=== PATIENT | male | born 1950 | race Caucasian/White ===

== ENCOUNTER 2024-12-24 00:13 | Emergency (ER) | payer MEDICARE, BC, OTHER, SELFPAY ==
--- OUTSIDE RECORDS SUMMARY | 2024-12-24 00:16 | XMS_ITS | Clinical Summary ---
Author Organization [facility] Address [address] [place] [address] Care Team Providers Care Furniture Shampooer Name Role Phone Elsewhere, Pcp Primary Care Provider Unavailabl e Source Comments Patient records contain information from all sites at [facility]. For routine questions regarding patient records, call [phone] during business hours, M-F 8:00 AM - 5:00 PM Central Time. Record requests for emergency care only can be directed to [phone] at any time.[facility] Allergies Active Allergy Reactions Criticality Noted Date Comments Carbidopa-Levodopa Other (see comments) 008 Lisinopril Other (see comments) 08/06/2012 Medications losartan (COZAAR) 100 mg tablet Take 100 mg by mouth daily. 6 Active pantoprazole (PROTONIX) 20 mg EC tablet Take 1 tablet by mouth daily. 6 Active tamsulosin (for_FLOMAX) 0.4 mg 24 hr capsule Take 1 capsule by mouth daily. 6 Active traZODone (for_DESYREL) 50 mg tablet Take 1 tablet by mouth at bedtime. 7 Active venlafaxine XR (EFFEXOR-XR) 75 mg 24 hr capsule Take 75 mg by mouth daily. 6 Active acetaminophen (TYLENOL) 500 mg capsule Take by mouth every 6 (six) hours as needed. Active ferrous gluconate 324 mg (37.5 mg iron) tablet Take 37.5 mg of iron by mouth daily. Patient takes 1 tablet daily. Active aspirin [address] tablet Take 81 mg by mouth daily. Active hydroCHLOROthia zide (HYDRODIURIL) 25 mg tablet Take 12.5 mg by mouth daily. Active diclofenac sodium (VOLTAREN) 1 % gel Apply 4 g topically 4 (four) times a day as needed (joint pain). Active cholecalciferol (Vitamin D3) 2,000 Unit tablet Take 1 tablet by mouth daily. 6 Active zolpidem (AMBIEN) 10 mg tablet 5 mg as needed. 9 Active ascorbic acid, vitamin C, (ascorbic acid with carla hips) 500 mg tablet Take 500 mg by mouth daily. Active multivitamin (multivitamin) tablet Take 1 tablet by mouth daily. Active meloxicam (MOBIC) 15 mg tablet Take 15 mg by mouth daily. Active simethicone (MYLICON) 80 mg chewable tablet CHEW ONE TABLET BY MOUTH EVERY DAY NEEDED FOR GAS PAIN 1 Active sennosides (SENOKOT) 8.6 mg tablet TAKE TWO TABLETS BY MOUTH THREE TIMES A DAY NEEDED FOR CONSTIPATION STOP IF DIARRHEA OCCURS FOR CONSTIPATION 1 Active pregabalin (LYRICA) 100 mg capsule 100 mg 2 (two) times a day. 1 Active Lactobacillus acidophilus 0.5 mg (100 million cell) tablet TAKE 1 TABLET BY MOUTH EVERY DAY FOR GUT HEALTH 1 Active lidocaine (LIDODERM) 5 % Place 1 patch on the skin daily. Remove & discard patch within 12 hours or as directed by MD. 12 patch 1 Active cyclobenzaprine (FLEXERIL) 10 mg tablet Take 10 mg by mouth. 1 Active folic acid 800 mcg tablet Take 1 tablet by mouth daily. Active omega 4-veb-shb-fish oil 1,000 mg (120 mg-180 mg) capsule Take 1,000 mg by mouth daily. 1 Active metFORMIN XR (GLUCOPHAGE-XR) 500 mg 24 hr tablet Take 2 tablets by mouth 2 (two) times a day with meals. 6 Active DULoxetine (CYMBALTA) [address] capsule Take 20 mg by mouth daily. 4 Active mineral oil/petrolatum, white (WHITE PETROLATUM-MINE RAL OIL OPHT) Administer into affected eye(s). 4 Active naproxen (NAPROSYN) 375 mg tablet Take 1 tablet by mouth 2 (two) times a day as needed. 4 Active polyvinyl alcohol-povidon e, PF, (REFRESH CLASSIC) 1.4-0.6 % ophthalmic solution Administer into affected eye(s). As needed. 4 Active empagliflozin (JARDIANCE) 25 mg tablet Take 12.5 mg by mouth. 3 Active amLODIPine (NORVASC) 5 mg tablet Take 1 tablet by mouth daily. 3 Active atorvastatin (LIPITOR) 80 mg tablet Take 1 tablet (80 mg total) by mouth at bedtime. 90 tablet 3 4 Active Active Problems Problem Noted Date Diagnosed Date Spasm Muscle 09/03/2020 Pain Flank 09/03/2020 Vomiting 08/31/2020 Abdominal Pain 08/31/2020 Atherosclerotic Heart Diseas e Of [place] Coronary Artery Without Angina Pectoris 07/06/2020 Hypertension Essential Primary 07/06/2020 Hyperlipidemia 07/06/2020 Peripheral Arterial Disease 07/06/2020 Diabetes Mellitus Type 2 Without Complication Obstructive Sleep Apnea Adult 07/06/2020 Immunizations Immunization Administration Dates Next Due HZV (ZOSTAVAX) 05/12/2016 HepB Adult 02/09/2006,10/06/2005,09/08/2005 Influenza TIV (IM) 06/08/2011,05/24/2006 PCV13 02/14/2013 PPSV23 02/14/2013,01/10/2012 Td (Adult), adsorbed 07/24/2004 Tdap 05/09/2021,02/14/2013 influenza trivalent high dose (HD)(PF) 9 influenza trivalent vaccine (6 months and older)(PF) 06/08/2011 influenza vaccine quad (FLUZ ONE/FLUARIX) (6 months and older)(PF) 05/18/2017 Social History Tobacco Use Types Packs/Day Years Used Date Smoking Tobacco: Former Cigarettes Smokeless Tobacco: Former Tobacco Cessation:Counseling Given: Not Answered Alcohol Use Standard Drinks/Week Comments Yes 3 (1 standard drink = 0.6 oz pur e alcohol) AUDIT-C Answer Date Recorded Frequency of Alcohol Consumption 4 or more times a week 07/06/2020 Average Number of Drinks 3 or 4 020 Frequency of Binge Drinking Never 06/23 Nutrition Answer Date Recorded Nutrition: EVOO Fat Source 13 04/07 Nutrition: Servings of Fruits/Vegetables per Day Not on file 04/07/2020 Dental Answer Date Recorded Dental: Regular Dentist Unknown 09/11/19 21 Sex and Gender Information Value Date Recorded Sex Assigned at Not on file Legal Sex Male 9:23 AM HOE RUNNER Gender Identity Not on file Sexual Orientation Not on file Last Filed Vital Signs Vital Sign Reading Time Taken Comments Blood Pressure 117/73 12/25/2023 8:11 AM CDT Pulse 60 12/25/2023 8:11 AM CDT Temperature 36.4 C (97.5 F) 05/20/2021 9:42 AM CDT Respiratory Rate 16 05/20/2021 9:42 AM CDT Oxygen Saturation 99% 12/25/2023 8:11 AM CDT room air Inhaled Oxygen Concentration - - Weight 101 kg (222 lb 3.6 oz) 12/25/2023 8:11 AM CDT Height 180.3 cm (5' 10.98) 01/17/2023 1:16 PM C DT Body Mass Index 31.01 01/17/2023 1:16 PM CDT Plan of Treatment Health Maintenance Due Date Last Done Comments Diabetic Office Visit with Foot Exam 1948 Dilated Eye Exam 1950 Hepatitis C Screening 1950 Urine Albumin 1950 Hemoglobin A1C 02/28/2021 08/31/2020, 09/18/2019 COVID-19 Vaccine ( season) 2024 08/11/2023, 06/09/2021, 10/02/2020, Additional history exists Influenza Vaccine (#1) 2024 , 08/19/2022, 05/05/2021, Additional history exists Depression Screening (Annual PHQ-2) 07/24/2024 Fall Risk Screen (Annual) 07/24/2024 Creatinine Level (Kidney Function Test) 12/24/2024 12/25/2023, 12/12/2022, 09/02/2020, Additional history exists Office Visit for Blood Pressure Check / Re-check 12/24/2024 12/25/2023 Potassium Level 12/24/2024 12/25/2023, 11/22, 09/02/2020, Additional history exists Sodium Level 12/24/2024 12/25/2023, 11/22, 09/02/2020, Additional history exists DTaP,Tdap,and Td Vaccines (4 - Td or Tdap) 07/19/2031 07/19/2021, 05/09/2021, 02/14/2013, Additional history exists Hepatitis B Vaccines Completed 02/09/2006, 10/06/2005, 09/08/2005 Pneumococcal vaccine (50+ years) Completed 08/14/2018, 02/27/2015, 02/14/2013, Additional history exists Zoster Vaccines Completed 09/11/2018, 06/23, 05/12/2016, Additional history exists Colonoscopy Discontinued 06/10/2020, 06/10/2020 Colorectal Cancer Screening Discontinued Abdominal Aortic Aneurysm (AAA) Screen Discontinued 08/31/2020, 08/20/2020, 08/11/2015 RSV vaccine - (32-36 weeks) or 60+ years Completed 05/30/2023 CT Colonography Discontinued Cologuard Discontinued FIT Discontinued IPV Vaccines Aged Out No longer eligi ble based on patient's age to complete this topic Medical Devices Implanted Type Area Aquatic Life Laborer Device Identifier Shelf Expiration Date Model / Serial / Lot Premier 2.25 X 8 - Rosas [id number] Implanted:Qty: 1 on 04/18/2016 Cardiac Stent [employer] Description:Device Manufactu rer - [employer]. Device Status Text - [id number]. Premier 2.5 X 16 - Rosas [id number] Implanted:Qty: 1 on 04/18/2016 Cardiac Stent [employer] Description:Device Manufactu rer - [employer]. Device Status Text - [id number]. Conversions - Default Historical Implant Device Implanted:04/18 (Quantity not on file) Hardware e.g. pins/screws /rods Left: Ankle Description:Body Location - Ankle L. Device Status Text - Hardware. Conversions - Default Historical Implant Device Implanted:04/18 (Quantity not on file) Hardware e.g. pins/screws /rods Bilateral: Other/Legacy - See Implant Description Description:Body Location - Shoulders. bilateral. Device Status Text - Hardware. Conversions - Default Historical Implant Device Implanted:04/18 (Quantity not on file) Misc Other Description:Device Status Te xt - MiscOther. Shrapnel. Conversions - Default Historical Implant Device Implanted:04/18 (Quantity not on file) Shoulder Implant Bilateral: Shoulder Description:Body Location - Shoulders. Device Status Text - Shoulder. Procedures Procedure Name Priority Date/Time Associated Diagnosis Comments SODIUM, S/P Routine 12/25/2023 9:00 AM CDT Atherosclerotic Heart Disease Of [place] Coronary Artery Without Angina Pectoris Coronary Stent Status Post POTASSIUM, S/P Routine 12/25/2023 9:00 AM CDT Atherosclerotic Heart Disease Of [place] Coronary Artery Without Angina Pectoris Coronary Stent Status Post CREATININE WITH EGFR, S/P Routine 12/25/2023 9:00 AM CDT Atherosclerotic Heart Disease Of [place] Coronary Artery Without Angina Pectoris Coronary Stent Status Post CT ABDOMEN PELVIS WITH IV CONTRAST RAD - Semiurgent (Fast; most ED patients; some inpatients) 08/31/2020 12:47 AM HOE RUNNER HEMOGLOBIN A1C, B Routine 08/31/2020 12: 02 AM HOE RUNNER from Last 3 Months or Most Recently Relevant to Health Maintenance Results * Sodium (12/25/2023 9:00 AM CDT) Sodium, P 140 135 - 145 mmol/L 12/25/2023 2:37 PM CDT OWAT Blood (Blood, Venous) 12/25/2023 9:00 AM CDT 12/25/2023 1:25 PM CDT us Froylan Diaz APRN, C.N.P. LAB BLOOD ADD-ON Sasha chatman Result [facility] [address] [place] [address], [facility] OWAT [facility] [place] [address] [place] [address] * Potassium (12/25/2023 9:00 AM CDT) Potassium, P 4.5 3.6 - 5.2 mmol/L 12/25/2023 2:37 PM CDT OWAT Blood (Blood, Venous) 12/25/2023 9:00 AM CDT 12/25/2023 1:25 PM CDT us Froylan Diaz APRN, C.N.P. LAB BLOOD ADD-ON Sasha l Result Performing Organization Address City/[facility]/ZIP Co de Phone Number [facility] [address] [place] [address], [place] OWAT [facility] [place] [address] [place] [address] * Creatinine with Estimated GFR (12/25/2023 9:00 AM CDT) Creatinine 0.74 0.74 - 1.35 mg/dL 12/25/2023 2:37 PM CDT OWAT Estimated GFR (eGFR) >90 >=60 mL/min/BSA 12/25/2023 2:37 PM CDT OWAT Comment: Estimated GFR calculated using the 2020 CKD_EPI creatinine equation. Blood (Blood, Venous) 12/25/2023 9:00 AM CDT 12/25/2023 1:25 PM CDT us Froylan Diaz APRN, C.N.P. LAB BLOOD ADD-ON Sasha l Result [facility] [address] [place] [address], [place] OWAT [facility] [place] [address] [place] [address] * CT Abdomen Pelvis with IV Contrast (08/31/2020 12:47 AM HOE RUNNER) Anatomical Region Laterality Modality Abdomen, Pelvis, Abdominal R ST LOS, Abdominal ARZ LOS, Abdominal FLA LOS N/A Computed Tomograp hy, Computed Tomography 08/31/2020 12:4 6 AM HOE RUNNER Impressions 08/31/2020 5:46 AM HOE RUNNER No acute findings in the abdomen or pelvis. Narrative 08/31/2020 5:46 AM HOE RUNNER EXAM: CT ABDOMEN PELVIS WITH IV CONTRAST COMPARISON: CT abdomen pelvis 08/20/2020 FINDINGS: Normal caliber small bowel. No large bowel obstruction. No free fluid or fluid collections in the abdomen or pelvis. Mild hepatic steatosis. Splenule. No hydronephrosis. Mild fatty atrophy of the pancreas. Postoperative changes, anterior abdominal wall. Multiple calcified pulmonary granulomas. Chronic appearing mild vertebral compression in the lower thoracic spine. Procedure Note Mikey Bernal M.D. - 08/31/2020 EXAM: CT ABDOMEN PELVIS WITH IV CONTRAST COMPARISON: CT abdomen pelvis 08/20/2020 FINDINGS: Normal caliber small bowel. No large bowel obstruction. No freefluid or fluid collections in the abdomen or pelvis. Mild hepatic steatosis. Splenule. No hydronephrosis. Mild fatty atrophy ofthe pancreas. Postoperative changes, anterior abdominal wall. Multiple calcifiedpulmonary granulomas. Chronic appearing mild vertebral compression in the lowerthoracic spine. IMPRESSION: No acute findings in the abdomen or pelvis. Mulugeta LauS. IMG CT PROCEDURES Final Result * (ABNORMAL) Hemoglobin A1c (08/31/2020 12:02 AM HOE RUNNER) Hemoglobin A1c, B 7.4(H) 4.0 - 5.6 % 08/31/2020 12:17 PM HOE RUNNER DTL Comment: Hemoglobin A1c values greater than or equal to 6.5 percent are diagnostic for diabetes mellitus. Diagnosis should be confirmed by repeat testing. In diabetic patients, HbA1c goals should be discussed with healthcare provider. Blood (Blood, Venous) 08/31/2020 12:02 AM HOE RUNNER 08/31/2020 4:53 AM HOE RUNNER Anabel Hartman M.D. LAB BLOOD ADD-ON Final Resu lt [facility] [address] [place] [address], [facility] DTL [facility] [address] [place] [address] from Last 3 Months or Most Recently Relevant to Health Maintenance Insurance MEDICARE [facility] Advance Directives For more information, please contact: [phone] * Full Code (Latest Code Status on File) Date Activated Date Inactivated Comments 08/31/2020 3:59 AM 09/03/2020 1:34 PM Question Answer Comments Full Code: Discussed Care Teams Furniture Shampooer Relationship Specialty Start Date End Date Elsewhere, Pcp PCP - General Family Medicine 09/02/20
--- OUTSIDE RECORDS SUMMARY | 2024-12-24 00:16 | XMS_ITS | Clinical Summary ---
Author Organization [facility] Address [address] [place] [id number] Care Team Providers Care Stand Up Comedian Name Role Phone Juan J Crawley MD Primary Care Provider Allergies Active Allergy Reactions Criticality Noted Date Comments Carbidopa-Levodopa Other - Describe In Comment Field 05/12/2008 Lisinopril Other - Describe In Comment Field Medications ASPIRIN 81 MG TAB, DELAYED RELEASE take 1 tablet (81mg) by oral route once daily 0 Active Cholecalciferol, Vitamin D3, (VITAMIN D) 5,000 unit tab Take 1 tablet by mouth once daily. 0 Active folic acid 800 mcg tablet Take 1 tablet by mouth once daily. 0 Active ascorbic acid (VITAMIN C) 500 mg tablet Take 500 mg by mouth once daily. Active metFORMIN (GLUCOPHAGE XR) 500 mg Extended-Release tabletIndications: Diabetes mellitus without complication (HC) Take 2 tablets by mouth 2 times daily with meals. 4 tablet 0 08/04/19 16 Active tamsulosin (FLOMAX) 0.4 mg capsuleIndications :Benign non-nodular prostatic hyperplasia with lower urinary tract symptoms Take 1 capsule by mouth once daily after a meal. 1 capsule 0 08/04/19 16 Active cyclobenzaprine (FLEXERIL) 10 mg tabletIndications: Neck pain on right side 1/2 to 1 tab at bedtime for muscle spasms 30 tablet 11 08/04/19 16 Active pantoprazole (PROTONIX) 20 mg tablet Take 1 tablet by mouth once daily. 1 tablet 0 04/26/20 16 Active nitroglycerin (NITROSTAT) 0.4 mg sublingual tabletIndications: ASCVD (arteriosclerotic cardiovascular disease) Place 1 tablet under the tongue every 5 minutes if needed for Chest Pain. 1 Bottle 0 04/26/20 16 Active atorvastatin (LIPITOR) 20 mg tabletIndications: Essential hypertension Take 2 tablets by mouth once daily. 1 tablet 06/21/20 17 Active amLODIPine (NORVASC) 2.5 mg tablet 11/07/19 19 Active venlafaxine (EFFEXOR XR) 75 mg cp24 Extended-Release capsule 01/10/20 19 Active diclofenac 1 % topical (VOLTAREN) gel Apply 4 g topically to affected area(s). Active zolpidem (AMBIEN) 5 mg tablet 01/24/20 18 Active traZODone (DESYREL) 50 mg tabletIndications: Insomnia, unspecified type Take 1 tablet by mouth at bedtime. 5 tablet 03/02/20 19 Active empagliflozin (JARDIANCE) 10 mg tablet Take 10 mg by mouth. Active Pedi MVI No.12-Sod Fluoride 0.25 mg tablet 800 mcg. 06/01/20 16 Active ferrous gluconate 324 mg (37.5 mg iron) tab tablet Take by mouth. Active pregabalin (LYRICA) 100 mg capsule 09/06/19 20 Active losartan (COZAAR) 100 mg tablet Take 100 mg by mouth. 06/01/20 16 Active polyethylene glycol-electrolyte (GOLYTELY) 236-22.74-6.74 -5.86 gram suspensionIndicati ons:Encounter for screening colonoscopy Drink 3 quarts the day prior to colonoscopy and 1 quart 6 hours prior to colonoscopy appointment 4000 mL 09/19/19 20 Active polyethylene glycol-electrolyte (GOLYTELY) 236-22.74-6.74 -5.86 gram suspensionIndicati ons:Encounter for screening colonoscopy Drink 3 quarts the day before the procedure and 1 quart 6 hours prior to colonoscopy 4000 mL 04/29/20 20 Active polyethylene glycol (MIRALAX; GLYCOLAX) 17 g powder for solution TAKE 17 GRAMS BY MOUTH TWICE A DAY *HOLD FOR LOOSE STOOLS/DIARRHEA* MIX IN 4 TO 8 OUNCES OF LIQUID DIRECTED*USE COVER TO MEASURE POWDER* 08/28/19 21 Active sennosides (SENNA) 8.6 mg tablet TAKE TWO TABLETS BY MOUTH THREE TIMES A DAY NEEDED FOR CONSTIPATION STOP IF DIARRHEA OCCURS FOR CONSTIPATION 08/28/19 Active simethicone chewable (MYLANTA GAS RELIEF; GAS X) 80 mg chewable tablet CHEW ONE TABLET BY MOUTH EVERY DAY NEEDED FOR GAS PAIN 08/28/19 Active Zrzxh-1-[id number]-Fi sh Oil 1,000 mg (120 mg-180 mg) capIndications:ASC VD (arteriosclerotic cardiovascular disease) Take 1 capsule by mouth. 0 09/08/19 21 Active cyclobenzaprine (FLEXERIL) 10 mg tabletIndications: Traumatic injury of head, initial encounter Take 1 Tablet (10 mg) by mouth 3 times daily. 10 Tablet 05/09/20 Active scopolamine 1mg over 3 days (TRANSDERM SCOP) patchIndications:M otion sickness, initial encounter Apply 1 Patch on dry, clean, hairless skin every 72 hours. 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 Heartburn 01/09/2012 Overview (03/19/2014): On omeprazole EGD 02/2014 normal Nausea & vomiting 01/09/2012 Neck pain 01/09/2012 Type II or unspecified type diabetes mellitus without mention of complication, not stated as uncontrolled 06/08/2011 Overview (01/09/2012): On metformin Last HbA1c = 6.6 in 06/03, 7.3 in 07/03 No other macro/microvascular complications Hypertrophy of prostate with urinary obstruction and other lower urinary tract symptoms (LUTS) 06/08/2011 Overview (01/09/2012): On hytrin Displacement of lumbar inter vertebral disc without myelopathy 07/09/2007 Overview (01/09/2012): On gabapentin, vicodin Degeneration of lumbar or lumbosacral interverte bral disc 07/09/2007 Closed fracture of unspecifi ed part of vertebral column without mention of spinal cord injury 12/05/2006 Overview (12/05/2006): T 12 Orchitis and epididymitis, unspecified 7 Benign neoplasm of colon 12/05/2006 Overview (06/18/2013): Colonoscopy 05/2013 normal repeat in 5 years Calculus of kidney 12/05/2006 Overview (12/05/2006): 1994 Other and unspecified hyperlipidemia 12/05/2006 Overview (01/09/2012): On atorvastatin, niacin 01/09/2012 No lipid panel on file Unspecified essential hypertension 12/05/2006 Overview (01/09/2012): On lisinopril Other and unspecified disc disorder of lumbar re gion Overview (12/05/2006): with radiculitis, into L. hip Resolved Problems Problem Noted Date Diagnosed Date Resolved Date Other chest pain 12/05/2006 01/09/2012 Immunizations Immunization Administration Dates Next Due Hepatitis B (Adult) 02/09/2006,10/06/2005,2005 Influenza, IIV3 (Age >=3 years) 06/08/2011,05/24 Influenza, IIV4 05/18/2017 Pneumococcal Poly,23-Valent (Pneumovax) 02/15/20 13,01/10/2012 Pneumococcal conj 13-Valent (Prevnar 13) 013 Td (Age >=7 Years) 07/24/2004 Tdap 05/09/2021,02/14/2013 Zoster (Zostavax-ZVL, live) 05/12/2016 Family History Medical History Relation Name Comments Hypertension Brother Arthritis Father Heart Disease Father at 60 Cancer Mother possible multip le myeloma Hypertension Mother Hypertension Sister Relation Name Status Comments Brother Father Mother Sister Social History Tobacco Use Types Packs/Day Years Used Date Smoking Tobacco: Former Cigarettes 0.2 15 Smokeless Tobacco: Never Tobacco Cessation:Counseling Given: Yes Comments:quit in 1979 Alcohol Use Standard Drinks/Week Comments Yes 1.7 (1 standard drin k = 0.6 oz pure alcohol) 1-2 beers per week or less 02/22/2017. 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 file Not on file Not on file Obstetrics History Last Filed Vital Signs Vital Sign Reading Time Taken Comments Blood Pressure 137/74 07/27/2021 2:20 PM ON AIR HOST Pulse 92 07/27/2021 2:20 PM ON AIR HOST Temperature 36.7 C (98 F) 07/27/2021 2:20 PM ON AIR HOST Respiratory Rate 18 07/27/2021 2:20 PM ON AIR HOST Oxygen Saturation 98% 07/27/2021 2:20 PM ON AIR HOST Inhaled Oxygen Concentration - - Weight 101.6 kg (224 lb) 07/27/2021 2:20 PM ON AIR HOST Height 180.3 cm (5' 11) 05/09/2021 7:47 PM CDT Body Mass Index 31.24 05/09/2021 7:47 PM CDT Plan of Treatment Health Maintenance Due Date Last Done Comments Zoster (shingles) series for age 50+ (2 of 3) 07/07/2016 05/12/2016 Pneumococcal series for age 50+ (3 of 3 - PCV20 or PCV21) 02/14/2018 02/14/2013, 02/14/2013, 01/10/2012 BMI (ht and wt on same day) for age 18+ 09/18/2020 09/18/2019, 03/02/2019, 06/21/2017, Additional history exists Medicare Wellness for age 65+ 09/18/2020 09/18/2019, 06/21/2017 Depression screening for age 12+ 09/08/2021 09/08/2020, 09/18/2019, 09/16/2019, Additional history exists RSV vaccine for adults or (1 - 1-dose 75+ series) 12/07/2023 COVID-19 vaccine series (2023- season) 2024 04/24/2024, 08/11/2023 Influenza Vaccine (Season Ended) 2025 05/18/2017, 06/08/2011, 05/24/2006 Tetanus booster 05/09/2031 05/09/2021, 01/22, 07/24/2004 Hepatitis B series for 19+ Completed 02/09, 10/06/2005, 09/08/2005 Hepatitis C screening for ag e 18-79 Completed 09/18/2019 Tdap Completed 05/09/2021, 02/14/2013 Procedures Procedure Name Priority Date/Time Associated Diagnosis Comments ANTI HCV Add On 09/18/2019 9:14 AM ON AIR HOST Encounter for hepatitis C screening test for low risk patient from Last 3 Months or Most Recently Relevant to Health Maintenance Results * ANTI HCV (09/18/2019 9:14 AM ON AIR HOST) HEPATITIS C ANTIBODY Non-React kalie Non-React kalie 09/18/2019 3:03 PM ON AIR HOST [facility] Comment:Antibodies to HCV no t detected; does not exclude the possibility of exposure to HCV. Blood BLOOD SPECIMEN / Unknown Venipuncture / Unknown 09/18/2019 9:14 AM ON AIR HOST 09/18/2019 9:17 AM ON AIR HOST us Juan J Crawley MD SEND OUTS Final R [facility] [address] [place] [address], [place] from Last 3 Months or Most Recently Relevant to Health Maintenance Insurance MEDICARE PART A HB ONLY MEDICARE PART B HB ONLY MEDICARE PB ONLY [facility] FED EMP MEDICARE PART A HB ONLY MEDICARE PART B HB ONLY [employer] [place] FED EMP Advance Directives Documents on File Type Date Recorded Patient Field Cashier Expl [email or web address] POL 09/18/2019 12:50 PM * Full Code (Latest Code Status on File) Date Activated Date Inactivated Comments 12/11/2013 8:46 AM 12/11/2013 2:44 PM * Full Code Date Activated Date Inactivated Comments 01/09/2012 2:58 PM 01/10/2012 3:36 PM Care Teams Stand Up Comedian Relationship Specialty Start Date End Date Juan J Crawley MD [address] [place] [address] [facility] [place] [id number] PCP - General Family Practice 07/28/15
[2024-12-24 00:47] VITALS: BP 132/79; PULSE 54; RESP 17; TEMP 36.6; O2SAT 96; BMI 30.1
--- NOTE | 2024-12-24 02:05 | CRLHL7_ITS ---
For Patients: As a result of the Century Cures Act, medical imaging exams and procedure reports are released immediately into your electronic medical record. You may view this report before your referring provider. If you have questions, please contact your health care provider. INDICATION: Left lower quadrant pain. TECHNIQUE: CT abdomen and pelvis acquired with 106 cc Isovue 370 IV contrast. COMPARISON: None. FINDINGS: Lower chest: Calcified granulomas. Small noncalcified right perifissural nodule is likely a lymph node. Coronary artery calcifications. Trace pericardial effusion. Liver: Unremarkable. Normal in size and attenuation. No suspicious masses. Gallbladder and bile ducts: Unremarkable. No stones or inflammation. No biliary dilatation. Pancreas: Unremarkable. No mass or inflammation. Spleen: Splenule. Normal in size. No masses. Adrenal glands: Unremarkable. No nodules. Kidneys: 2 mm calcified stone in the proximal left ureter with associated upstream periureteral/perinephric inflammatory changes and mild hydroureter/hydronephrosis. Small bilateral nonobstructive renal calcifications as well. Cysts and subcentimeter hypodense lesions too small to characterize, likely cysts. GI tract: Above average colonic stool burden, possibly consistent with constipation. Normal in caliber. No sign of mass or inflammation. Normal appendix. Vasculature: Atherosclerotic calcifications of the aorta and branch vessels. Abdominal aorta is normal in caliber. Mesenteric arteries are patent. Lymph nodes: No pathologic lymphadenopathy. Peritoneum/Abdominal Wall: Trace free fluid in the dependent pelvis. No pneumoperitoneum. Pelvis: Trace contrast pooling in the dependent bladder. Mild prostatomegaly. Bones: No acute or suspicious lesions. Multilevel spinal degenerative changes. IMPRESSION: 2 mm calcified stone in the proximal left ureter with associated upstream inflammatory changes and mild hydroureter/hydronephrosis. Please note that all CT scans at this facility use dose modulation, iterative reconstruction, and/or weight-based dosing when appropriate to reduce radiation dose to as low as reasonably achievable. Dictated by Blake Storey MD @ 12/24/2024 3:26:52 AM (Electronically Signed)
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
[2024-12-24] MEDS: ONDANSETRON 2 MG/ML inj 4 MG IVP (02:24)
[2024-12-24] MEDS: HYDROmorphone 0.5 mg/0.5 ml inj IVP (02:25)
[2024-12-24 02:43] LABS: Basophils Absolute Auto 0.04 K/uL (0.00-0.30); Basophils Percent Auto 0.4 % (0.0-3.0); Eosinophils Absolute Auto 0.04 K/uL (0.00-0.50); Eosinophils Percent Auto 0.4 % (0.0-7.0); Hematocrit 42.1 % (37.0-53.0); Hemoglobin* 14.4 gm/dL (13.5-17.5); Immature Granulocytes Abs Auto 0.14 K/uL (0.00-0.30); Immature Granulocytes Pct Auto 1.4 %; Lymphocytes Percent Auto 12.9 % (20-44); Mean Corpuscular HGB Conc 34 gm/dL (32-36); Mean Corpuscular Hemoglobin 31 pg (26-34); Mean Corpuscular Volume 91 fL (80-100); Monocytes Percent Auto 5.6 % (0.0-11.0); Neutrophils Percent Auto 79.3 % (42.0-72.0); Platelet Count* 227 K/uL (140-440); RDW Coefficient of Variation % 12.8 % (11.5-15.5); Red Blood Count 4.63 m/uL (4.30-5.90); White Blood Count* 10.03 K/uL (4.50-11.00)
[2024-12-24 02:44] LABS: Appearance Urine Clear (Clear); Bilirubin Urine Negative (Negative); Blood Urine Trace-intact (Negative); Color Urine Yellow (Yellow); Glucose Urine 3+ (Negative); Ketones Urine Trace (Negative); Leukocyte Esterase Urine Negative (Negative); Nitrite Urine Negative (Negative); Protein Urine Negative (Negative); Specific Gravity Urine 1.015 (1.000-1.030)
[2024-12-24 02:45] LABS: Slide Review Reflex No
[2024-12-24 02:50] LABS: Albumin* 4.5 g/dL (3.3-5.0); Chloride* 105 mmol/L (96-114)
[2024-12-24 02:51] LABS: Potassium* 4.2 mmol/L (3.6-5.1); Sodium* 140 mmol/L (135-149)
[2024-12-24 02:53] LABS: Blood Urea Nitrogen* 16 mg/dL (7-30); Creatinine* 0.9 mg/dL (0.5-1.5); Est. Creatinine Clearance* 66.93; Estimated Glomerular Filt Rate 89 ml/min
[2024-12-24 02:54] LABS: Alanine Aminotransferase* 26 U/L (4-50); Alkaline Phosphatase* 84 U/L (40-150); Anion Gap 10 mEq/L (7-15); Aspartate Amino Transferase* 32 U/L (12-35); Bilirubin Total* 0.8 mg/dL (0.1-1.5); Calcium* 9.7 mg/dL (8.4-10.6); Carbon Dioxide* 25 mmol/L (20-32); Glucose* 180 mg/dL (60-115); Lipase* 85 U/L (23-300); Total Protein* 7.3 g/dL (6.0-8.3)
[2024-12-24 02:56] LABS: Squamous Epithelial Cell Urine Few (None-Few); WBC Urine 0-2 (0-5)
[2024-12-24 02:57] LABS: C Reactive Protein* < 0.5 mg/dL (0.5-1.0)
[2024-12-24 03:07] VITALS: PULSE 64; RESP 16; O2SAT 92
== END 2024-12-24 03:50 | disposition home or self-care (01) ==
PROVIDERS: Emergency Provider Family Medicine
DX: N20.1 Calculus of ureter (principal); E11.9 Type 2 diabetes mellitus without complications
CPT/HCPCS: 36415; 74177; 80053; 81001; 81003; 82565; 83690; 85025; 86140; 96374; 96375; 99284; 99285; J1171; J2405; Q9967

== ENCOUNTER 2025-07-09 17:14 | Emergency (ER) | payer MEDICARE, BC, OTHER, SELFPAY ==
[2025-07-09] VITALS (9 sets, daily range): BP systolic 115–136; BP diastolic 72–78; PULSE 71–95; RESP 18–30; TEMP 36.2; O2SAT 90–96; BMI 29.8
--- OUTSIDE RECORDS SUMMARY | 2025-07-09 17:18 | XMS_ITS | Clinical Summary ---
Author Organization [facility] Address [address] [place] [address] Care Team Providers Care Trailer Park Manager Name Role Phone Elsewhere, Pcp Primary Care Provider Unavailabl e Source Comments Patient records contain information from all sites at [facility]. For routine questions regarding patient records, call [phone] during business hours, M-F 8:00 AM - 5:00 PM Central Time. Record requests for emergency care only can be directed to [phone] at any time.[facility] Allergies Active AllergyReactionsCriticalityNoted DateCommentsCarbidopa-LevodopaOther (see comments)05/12/2008LisinoprilOther (see comments)08/06/2012 Medications MedicationSigDispense QuantityRefillsLast FilledStart DateEnd DateStatus losartan (COZAAR) 100 mg tablet Take 100 mg by mouth daily.06/01/2016Active pantoprazole (PROTONIX) 20 mg EC tablet Take 1 tablet by mouth daily.06/01/2016Active tamsulosin (for_FLOMAX) 0.4 mg 24 hr capsule Take 1 capsule by mouth daily.06/01/2016Active traZODone (for_DESYREL) 50 mg tablet Take 1 tablet by mouth at bedtime.05/10/2017Active venlafaxine XR (EFFEXOR-XR) 75 mg 24 hr capsule Take 75 mg by mouth daily.06/01/2016Active acetaminophen (TYLENOL) 500 mg capsule Take by mouth every 6 (six) hours as needed.Active ferrous gluconate 324 mg (37.5 mg iron) tablet Take 37.5 mg of iron by mouth daily. Patient takes 1 tablet daily.Active aspirin [address] tablet Take 81 mg by mouth daily.Active hydroCHLOROthiazide (HYDRODIURIL) 25 mg tablet Take 12.5 mg by mouth daily.Active diclofenac sodium (VOLTAREN) 1 % gel Apply 4 g topically 4 (four) times a day as needed (joint pain).Active cholecalciferol (Vitamin D3) 2,000 Unit tablet Take 1 tablet by mouth daily.04/17/2016Active zolpidem (AMBIEN) 10 mg tablet 5 mg as needed.04/11/2019Active ascorbic acid, vitamin C, (ascorbic acid with carla hips) 500 mg tablet Take 500 mg by mouth daily.Active multivitamin (multivitamin) tablet Take 1 tablet by mouth daily.Active meloxicam (MOBIC) 15 mg tablet Take 15 mg by mouth daily.Active simethicone (MYLICON) 80 mg chewable tablet CHEW ONE TABLET BY MOUTH EVERY DAY NEEDED FOR GAS PAIN08/28/2020ctive sennosides (SENOKOT) 8.6 mg tablet TAKE TWO TABLETS BY MOUTH THREE TIMES A DAY NEEDED FOR CONSTIPATION STOP IF DIARRHEA OCCURS FOR TIMGNSKLRORY35/05/2021ctive pregabalin (LYRICA) 100 mg capsule 100 mg 2 (two) times a day.07/31/2020ctive Lactobacillus acidophilus 0.5 mg (100 million cell) tablet TAKE 1 TABLET BY MOUTH EVERY DAY FOR GUT CZBMQR4708/28/2020ctive lidocaine (LIDODERM) 5 % Place 1 patch on the skin daily. Remove & discard patch within 12 hours or as directed by MD. 12 patch 09/03/2020ctive cyclobenzaprine (FLEXERIL) 10 mg tablet Take 10 mg by mouth.05/09/2021ctive folic acid 800 mcg tablet Take 1 tablet by mouth daily.Active omega 1-xga-fut-fish oil 1,000 mg (120 mg-180 mg) capsule Take 1,000 mg by mouth daily.09/08/2020ctive metFORMIN XR (GLUCOPHAGE-XR) 500 mg 24 hr tablet Take 2 tablets by mouth 2 (two) times a day with meals.08/04/2015Active DULoxetine (CYMBALTA) [address] capsule Take 20 mg by mouth daily.08/26/2023ctive mineral oil/petrolatum,white (WHITE PETROLATUM-MINERAL OIL OPHT) Administer into affected eye(s).10/18/2023ctive naproxen (NAPROSYN) 375 mg tablet Take 1 tablet by mouth 2 (two) times a day as needed.09/29/2023ctive polyvinyl alcohol-povidone, PF, (REFRESH CLASSIC) 1.4-0.6 % ophthalmic solution Administer into affected eye(s). As needed.10/18/2023ctive empagliflozin (JARDIANCE) 25 mg tablet Take 12.5 mg by mouth.05/01/2023ctive amLODIPine (NORVASC) 5 mg tablet Take 1 tablet by mouth daily.06/16/2023ctive atorvastatin (LIPITOR) 80 mg tablet Take 1 tablet (80 mg total) by mouth at bedtime. 90 tablet ctive Active Problems ProblemNoted DateDiagnosed DateSpasm Ytzuif1809/03/2020ain Flank09/03/2020 Tpbduzki87/08/2021bdominal Pain08/31/2020therosclerotic Heart Disease Of [place] Coronary Artery Without Angina Qsulaazs85/14/2020Hypertension Essential Pyxsmsk3407/06/20203118Kpqthyecawjqno15/14/2020Peripheral Arterial Palaqkh3707/06/2020 Diabetes Mellitus Type 2 Without Rqhhwfrpdthr71/14/2020Obstructive Sleep Apnea Adult07/06/2020 Immunizations ImmunizationAdministration DatesNext DueHZV (ZOSTAVAX)05/12/2016HepB Adult 02/09/2006,10/06/2005,09/08/2005Influenza TIV (IM)06/08/2011,05/24/2006PCV13 02/14/20133221RGVC3925/25/2013,01/10/2012Td (Adult), naolmzqt26/01/2005Tdap 05/09/2021,02/14/2013influenza trivalent high dose (HD)(PF)04/30/2019influenza trivalent vaccine (6 months and older)(PF)06/08/2011influenza vaccine quad (FLUZONE/FLUARIX) (6 months and older)(PF)05/18/2017 Social History Tobacco UseTypesPacks/DayYears UsedDateSmoking Tobacco: FormerCigarettes Smokeless Tobacco: Former Tobacco Cessation:Counseling Given: Not Answered Alcohol UseStandard Drinks/WeekCommentsYes3 (1 standard drink = 0.6 oz pure alcohol)Sex and Gender InformationValueDate RecordedSex Assigned at BirthNot on fileLegal LgmFxci0508/25/2016 9:23 AM CSTGender IdentityNot on fileSexual OrientationNot on file Last Filed Vital Signs Vital SignReadingTime TakenCommentsBlood Ahermtdd239/7306 8:11 AM CDT Qnrve1511/03/2024 8:11 AM YLRMyhqwxikewg34.4 ??C (97.5 ??F)05/20/2021 9:42 AM CDTRespiratory Vmem2904 9:42 AM CDTOxygen Kfhgwbowsg23%12/25/2023 8:11 AM CDTroom airInhaled Oxygen Concentration--Rkdboz652 kg (222 lb 3.6 oz) 12/25/2023 8:11 AM VUDPzzpnj437.3 cm (5' 10.98)01/17/2023 1:16 PM CDTBody Mass Index31.01001/17/2023 1:16 PM CDT Plan of Treatment Health MaintenanceDue DateLast DoneCommentsDiabetic Eye Exam1948Diabetic Office Visit with Foot Exam1948Hepatitis C Ncluhlaay67/16/1949Office Visit for Blood Pressure Check / Re-check1948Urine Wecqpbz84 1948Hemoglobin A1C/02/2021, 09/18/2019Depression Screening (Annual PHQ-2)07/24/2024 Fall Risk Screen (Annual)5Creatinine Level (Kidney Function Test) /09/2023, 12/12/2022, 09/02/2020, Additional history existsPotassium Level/09/2023, 12/12/2022, 09/02/2020, Additional history exists Sodium Level/09/2023, 12/12/2022, 09/02/2020, Additional history existsCOVID-19 Vaccine ( season)501/, 06/09/2021, 10/02/2020, Additional history existsInfluenza Vaccine (#1)511/01/2023, 08/19/2022, 05/05/2021, Additional history existsDTaP,Tdap,and Td Vaccines (4 - Td or Tdap), 05/09/2021, 02/14/2013, Additional history existsHepatitis B YlcssqtnTwkbvjtda90/20/2006, 10/06/2005, 09/08/2005 Pneumococcal vaccine (50+ years)Razmlquqf43/22/2019, 02/27/2015, 02/14/2013, Additional history existsZoster WnqfcajpTlarlstft33/19/2019, 07/10/2018, 05/12/2016, Additional history ocivltLyhqhdcwdvgKhymyaivaups90/18/2020, 06/10/2020Colorectal Cancer ScreeningDiscontinuedAbdominal Aortic Aneurysm (AAA) YdgqzaQlpsbcojrbyf47/08/2021, 08/20/2020, 08/11/2015RSV vaccine - (32- 36 weeks) or 50+ pexmbQmsvktbqt22/07/2023CT ColonographyDiscontinuedCologuard DiscontinuedFITDiscontinuedIPV VaccinesAged OutNo longer eligible based on patient's age to complete this topic Medical Devices ImplantedTypeAreaManufacturerDevice IdentifierShelf Expiration DateModel / Serial / LotPremier 2.25 X 8 - Rosas [id number] Implanted:Qty: 1 on 04/18/2016Cardiac StentaScentias ScientificDescription:Device 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 Device Status Text - [id number]. Conversions - Default Historical Implant Device Implanted:04/18/2016 (Quantity not on file)Hardware e.g. pins/screws/rodsLeft: AnkleDescription:Body Location - Ankle L. Device Status Text - Hardware. Conversions - Default Historical Implant Device Implanted:04/18/2016 (Quantity not on file)Hardware e.g. pins/screws/rods Bilateral: Other/Legacy - See Implant DescriptionDescription:Body Location - Shoulders. bilateral. Device Status Text - Hardware.Conversions - Default Historical Implant Device Implanted:04/18/2016 (Quantity not on file)Misc OtherDescription:Device Status Text - MiscOther. Shrapnel.Conversions - Default Historical Implant Device Implanted:04/18/2016 (Quantity not on file)Shoulder ImplantBilateral: Shoulder Description:Body Location - Shoulders. Device Status Text - Shoulder. Procedures Procedure NamePriorityDate/TimeAssociated DiagnosisCommentsSODIUM, S/PRoutine 12/25/2023 9:00 AM CDT Atherosclerotic Heart Disease Of [place] Coronary Artery Without Angina Pectoris Coronary Stent Status Post POTASSIUM, S/JAxhzedf14/03/2024 9:00 AM CDT Atherosclerotic [facility] Disease Of [place] Coronary Artery Without Angina Pectoris Coronary Stent Status Post CREATININE WITH EGFR, S/QKyciboc72/03/2024 9:00 AM CDT Atherosclerotic [facility] Disease [facility] [place] Coronary Artery Without Angina Pectoris Coronary Stent Status Post CT ABDOMEN PELVIS WITH IV CONTRASTRAD - Semiurgent (Fast; most ED patients; some inpatients)08/31/2020 12:47 AM CODING SPEC HEMOGLOBIN A1C, DParpkaz30/08/2021 12:02 AM CODING SPEC from Last 3 Months or Most Recently Relevant to Health Maintenance Results * Sodium (12/25/2023 9:00 AM CDT)ComponentValueRef RangeTest MethodAnalysis Time Performed AtPathologist SignatureSodium, K003035 - 145 mmol/L12/25/2023 2:37 PM CDTOWATSpecimen (Source)Anatomical Location / LateralityCollection Method / VolumeCollection TimeReceived TimeBlood (Blood, Venous)12/25/2023 9:00 AM CDT 12/25/2023 1:25 PM CDT Narrative Authorizing ProviderResult TypeResult StatusAdam Nelly Diaz APRN, C.N.P.LAB BLOOD ADD-ONFinal ResultPerforming OrganizationAddressCity/State/ZIP CodePhone Number [facility] [address] [place] [address], [facility] [place] [address] [place] [address] * Potassium (12/25/2023 9:00 AM CDT)ComponentValueRef RangeTest MethodAnalysis TimePerformed AtPathologist SignaturePotassium, P4.53.6 - 5.2 mmol/L12/25/2023 2:37 PM CDTOWATSpecimen (Source)Anatomical Location / LateralityCollection Method / VolumeCollection TimeReceived TimeBlood (Blood, Venous)12/25/2023 9:00 AM CDT12/25/2023 1:25 PM CDT Narrative Authorizing ProviderResult TypeResult StatusAdam Nelly Diaz APRN, C.N.P.LAB BLOOD ADD-ONFinal ResultPerforming OrganizationAddressCity/State/ZIP CodePhone Number [facility] [address] [place] [address], [facility] [place] [address] [place] [phone] * Creatinine with Estimated GFR (12/25/2023 9:00 AM CDT)ComponentValueRef Range Test MethodAnalysis TimePerformed AtPathologist SignatureCreatinine0.740.74 - 1.35 mg/dL12/25/2023 2:37 PM CDTOWATEstimated GFR (eGFR)>90>=60 mL/min/BSA 12/25/2023 2:37 PM CDTOWATComment: Estimated GFR calculated using the 2020 CKD_EPI creatinine equation. Specimen (Source)Anatomical Location / LateralityCollection Method / Volume Collection TimeReceived TimeBlood (Blood, Venous)12/25/2023 9:00 AM CDT 12/25/2023 1:25 PM CDT Narrative Authorizing ProviderResult TypeResult StatusAdam Nelly Diaz APRN, C.N.P.LAB BLOOD ADD-ONFinal ResultPerforming OrganizationAddressCity/State/ZIP CodePhone Number [facility] [address] [address], [facility] [place] [address] [place] [address] * CT Abdomen Pelvis with IV Contrast (08/31/2020 12:47 AM CODING SPEC)Anatomical Region LateralityModalityAbdomen, Pelvis, Abdominal RST LOS, Abdominal ARZ LOS, Abdominal FLA LOSN/AComputed Tomography, Computed TomographySpecimen (Source) Anatomical Location / LateralityCollection Method / VolumeCollection Time Received Time08/31/2020 12:46 AM CODING SPEC Impressions 08/31/2020 5:46 AM CODING SPEC No acute findings in the abdomen or pelvis. Narrative 08/31/2020 5:46 AM CODING SPEC EXAM: CT ABDOMEN PELVIS WITH IV CONTRAST COMPARISON: ??CT abdomen pelvis 08/20/2020 FINDINGS: ??Normal caliber small bowel. No large bowel obstruction. [...] acute findings in the abdomen or pelvis. Authorizing ProviderResult TypeResult StatusMulugeta CartagenaSAINT FRANCIS [facility] [place] CT PROCEDURESFinal Result * (ABNORMAL) Hemoglobin A1c (08/31/2020 12:02 AM CODING SPEC)ComponentValueRef RangeTest MethodAnalysis TimePerformed AtPathologist SignatureHemoglobin A1c, B7.4(H)4.0 - 5.6 %08/31/2020 12:17 PM CSTDTLComment: Hemoglobin A1c values greater than or equal to 6.5 percent are diagnostic for diabetes mellitus. ??Diagnosis should be confirmed by repeat testing. ??In diabetic patients, HbA1c goals should be discussed with healthcare provider. Specimen (Source)Anatomical Location / LateralityCollection Method / Volume Collection TimeReceived TimeBlood (Blood, Venous)08/31/2020 12:02 AM CODING SPEC 08/31/2020 4:53 AM CODING SPEC Narrative Authorizing ProviderResult TypeResult StatusAnabel Hartman M.D.LAB BLOOD ADD-ON Final ResultPerforming OrganizationAddressCity/State/ZIP CodePhone Number [facility] [address] [place] [address], [place] [facility] [address] [place] [address] from Last 3 Months or Most Recently Relevant to Health Maintenance Insurance * Guarantor: Rod Rousseau TypeRelation to PatientDate of PhoneBilling AddressPersonal/ZckehaNklr81/[birth year]/[address] [place] [id number] Advance Directives For more information, please contact: [phone] * Full Code (Latest Code Status on File) Date ActivatedDate InactivatedComments08/31/2020 3:59 AM09/03/2020 1:34 PMQuestion AnswerCommentsFull Code:* Discussed Care Teams Team MemberRelationshipSpecialtyStart DateEnd Date Elsewhere, Pcp PCP - GeneralFamily Medicine09/02/20
--- OUTSIDE RECORDS SUMMARY | 2025-07-09 17:18 | XMS_ITS | Clinical Summary ---
Author Organization [facility] Address [address] [place] [address] Care Team Providers Care Hub Cutter Apprentice Name Role Phone Juan J Crawley MD Primary Care Provider Allergies Active AllergyReactionsCriticalityNoted DateCommentsCarbidopa-LevodopaOther - Describe In Comment Field05/12/2008LisinoprilOther - Describe In Comment Field 08/06/2012 Medications MedicationSigDispense QuantityRefillsLast FilledStart DateEnd DateStatus ASPIRIN 81 MG TAB, DELAYED RELEASE take 1 tablet (81mg) by oral route once mveaz9Utweec Cholecalciferol, Vitamin D3, (VITAMIN D) 5,000 unit tab Take 1 tablet by mouth once daily.0Active folic acid 800 mcg tablet Take 1 tablet by mouth once daily.0Active ascorbic acid (VITAMIN C) 500 mg tablet Take 500 mg by mouth once daily.Active metFORMIN (GLUCOPHAGE XR) 500 mg Extended-Release tablet Indications:Diabetes mellitus without complication (HC)Take 2 tablets by mouth 2 times daily with meals. 4 tablet Active tamsulosin (FLOMAX) 0.4 mg capsule Indications:Benign non-nodular prostatic hyperplasia with lower urinary tract symptomsTake 1 capsule by mouth once daily after a meal. 1 capsule Active cyclobenzaprine (FLEXERIL) 10 mg tablet Indications:Neck pain on right side1/2 to 1 tab at bedtime for muscle spasms 30 tablet 11008/04/2015Active pantoprazole (PROTONIX) 20 mg tablet Take 1 tablet by mouth once daily. 1 tablet Active nitroglycerin (NITROSTAT) 0.4 mg sublingual tablet Indications:ASCVD (arteriosclerotic cardiovascular disease)Place 1 tablet under the tongue every 5 minutes if needed for Chest Pain. 1 Bottle Active atorvastatin (LIPITOR) 20 mg tablet Indications:Essential hypertensionTake 2 tablets by mouth once daily. 1 tablet 06/21/2017Active amLODIPine (NORVASC) 2.5 mg tablet 11/06/2018Active venlafaxine (EFFEXOR XR) 75 mg cp24 Extended-Release capsule 01/09/2019Active diclofenac 1 % topical (VOLTAREN) gel Apply 4 g topically to affected area(s).Active zolpidem (AMBIEN) 5 mg tablet 01/23/2018Active traZODone (DESYREL) 50 mg tablet Indications:Insomnia, unspecified typeTake 1 tablet by mouth at bedtime. 5 tablet 03/02/2019Active empagliflozin (JARDIANCE) 10 mg tablet Take 10 mg by mouth.Active Pedi MVI No.12-Sod Fluoride 0.25 mg tablet 800 mcg.06/01/2016Active ferrous gluconate 324 mg (37.5 mg iron) tab tablet Take by mouth.Active pregabalin (LYRICA) 100 mg capsule 09/06/2019Active losartan (COZAAR) 100 mg tablet Take 100 mg by mouth.06/01/2016Active polyethylene glycol-electrolyte (GOLYTELY) 236-22.74-6.74 -5.86 gram suspension Indications:Encounter for screening colonoscopyDrink 3 quarts the day prior to colonoscopy and 1 quart 6 hours prior to colonoscopy appointment 4000 mL 09/19/2019Active polyethylene glycol-electrolyte (GOLYTELY) 236-22.74-6.74 -5.86 gram suspension Indications:Encounter for screening colonoscopyDrink 3 quarts the day before the procedure and 1 quart 6 hours prior to colonoscopy 4000 mL 04/29/2020Active polyethylene glycol (MIRALAX; GLYCOLAX) 17 g powder for solution TAKE 17 GRAMS BY MOUTH TWICE A DAY *HOLD FOR LOOSE STOOLS/DIARRHEA*MIX IN 4 TO 8 OUNCES OF LIQUID DIRECTED*USE COVER TO MEASURE POWDER*08/28/2020ctive sennosides (SENNA) 8.6 mg tablet TAKE TWO TABLETS BY MOUTH THREE TIMES A DAY NEEDED FOR CONSTIPATION STOP IF DIARRHEA OCCURS FOR BOEAAJIHKMYM49/05/2021ctive simethicone chewable (MYLANTA GAS RELIEF; GAS X) 80 mg chewable tablet CHEW ONE TABLET BY MOUTH EVERY DAY NEEDED FOR GAS PAIN08/28/2020ctive Szquz-4-EMD-EPA-Fish Oil 1,000 mg (120 mg-180 mg) cap Indications:ASCVD (arteriosclerotic cardiovascular disease)Take 1 capsule by mouth. ctive cyclobenzaprine (FLEXERIL) 10 mg tablet Indications:Traumatic injury of head, initial encounterTake 1 Tablet (10 mg) by mouth 3 times daily. 10 Tablet 05/09/2021ctive scopolamine 1mg over 3 days (TRANSDERM SCOP) patch Indications:Motion sickness, initial encounterApply 1 Patch on dry, clean, hairless skin every 72 hours. 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 Puwueyoyl36/18/2012 Overview (03/19/2014): On omeprazole EGD 02/2014 normal Nausea & ajutalpm31/18/2012Neck pain01/09/2012Type II or unspecified type diabetes mellitus without mention of complication, not stated as uncontrolled 06/08/2011 Overview (01/09/2012): On metformin Last HbA1c = 6.6 in 06/03, 7.3 in 07/03 No other macro/microvascular complications Hypertrophy of prostate with urinary obstruction and other lower urinary tract symptoms (LUTS)06/08/2011 Overview (01/09/2012): On hytrin Displacement of lumbar intervertebral disc without jmukhexbfs38/17/2007 Overview (01/09/2012): On gabapentin, vicodin Degeneration of lumbar or lumbosacral intervertebral disc07/09/2007Closed fracture of unspecified part of vertebral column without mention of spinal cord ucsivh8412/05/2006 Overview (12/05/2006): T 12 Orchitis and epididymitis, pcgibiniocn94/15/2007Benign neoplasm of colon 12/05/2006 Overview (06/18/2013): Colonoscopy 05/2013 normal repeat in 5 years Calculus of cevazh0112/05/2006 Overview (12/05/2006): 1994 Other and unspecified bppssqfsuqwafi33/15/2007 Overview (01/09/2012): On atorvastatin, niacin 01/09/2012 No lipid panel on file Unspecified essential spiygwbqqwsk09/15/2007 Overview (01/09/2012): On lisinopril Other and unspecified disc disorder of lumbar region Overview (12/05/2006): with radiculitis, into L. hip Resolved Problems ProblemNoted DateDiagnosed DateResolved DateOther chest pain Immunizations ImmunizationAdministration DatesNext DueHepatitis B (Adult)02/09/2006,10/06/2005 ,09/08/2005Influenza, IIV3 (Age >=3 years)06/08/2011,05/24/2006Influenza, IIV4 05/18/2017Pneumococcal Poly,23-Valent (Pneumovax)02/14/2013,01/10/2012 Pneumococcal conj 13-Valent (Prevnar 13)02/14/2013Td (Age >=7 Years)07/24/2004 Tdap1,02/14/2013Zoster (Zostavax-ZVL, live)05/12/2016 Family History Medical HistoryRelationNameCommentsHypertensionBrotherArthritisFatherHeart DiseaseFatherdeceased at 60CancerMotherpossible multiple myeloma HypertensionMotherHypertensionSisterRelationNameStatusCommentsBrotherFather DeceasedMotherSister Social History Tobacco UseTypesPacks/DayYears UsedDateSmoking Tobacco: FormerCigarettes0.215 Smokeless Tobacco: Never Tobacco Cessation:Counseling Given: Yes Comments:quit in 1979 Alcohol UseStandard Drinks/WeekCommentsYes1.7 (1 standard drink = 0.6 oz pure alcohol)1-2 beers per week or less 02/22/2017.PHQ-2AnswerDate RecordedPHQ-2 TOTAL NLUKE806ocial ConnectionsAnswerDate RecordedFrequency of Communication with Friends and FamilyNot on file07/24/2021Financial Resource StrainAnswerDate RecordedDifficulty of Paying Living ExpensesNot on file 2Difficulty of Paying Living ExpensesNot on file07/24/2021ex and Gender InformationValueDate RecordedSex Assigned at BirthNot on fileLegal Sex Male08/06/2012 5:23 AM CSTGender IdentityNot on fileSexual OrientationNot on fileOccupationIndustryJob Start DateJob End Datepost officeNot on fileNot on fileNot on file Last Filed Vital Signs Vital SignReadingTime TakenCommentsBlood Nhznwtqh404/7407/27/2021 2:20 PM PARTS CONSULTANT Elygz815307/27/2021 2:20 PM WQEFwkevhhafbk82.7 ??C (98 ??F)07/27/2021 2:20 PM PARTS CONSULTANT Respiratory Ktlj056807/27/2021 2:20 PM CSTOxygen Nssinaqonp27%07/27/2021 2:20 PM CSTInhaled Oxygen Concentration--Peryty705.6 kg (224 lb)07/27/2021 2:20 PM PARTS CONSULTANT Bxogof838.3 cm (5' 11)05/09/2021 7:47 PM CDTBody Mass Index31.241 7:47 PM CDT Plan of Treatment Health MaintenanceDue DateLast DoneCommentsZoster (shingles) series for age 50+ (2 of 3)Pneumococcal series for age 50+ (3 of 3 - PCV20 or PCV21), 02/14/2013, 01/10/2012MI (ht and wt on same day) for age 18+, 03/02/2019, 06/21/2017, Additional history existsMedicare Wellness for age 65+, 06/21/2017Depression screening for age 12+/, 09/18/2019, 09/16/2019, Additional history existsRSV vaccine for adults or (1 - 1-dose 75+ series) 12/07/2023OVID-19 vaccine series ( - season)/08/2023, 08/11/2023Influenza Vaccine (#1)/, 06/08/2011, 05/24/2006 Tetanus /, 02/14/2013, 07/24/2004Hepatitis B series for 19+Swhexrdox66/20/2006, 10/06/2005, 09/08/2005Hepatitis C screening for age 18-35Ikkvoorpr29/26/2020 Procedures Procedure NamePriorityDate/TimeAssociated DiagnosisCommentsANTI HCVAdd On 09/18/2019 9:14 AM PARTS CONSULTANT Encounter for hepatitis C screening test for low risk patient from Last 3 Months or Most Recently Relevant to Health Maintenance Results * ANTI HCV (09/18/2019 9:14 AM PARTS CONSULTANT)ComponentValueRef RangeTest MethodAnalysis TimePerformed AtPathologist SignatureHEPATITIS C ANTIBODYNon-Reactive Non-Hphjrnnb50/26/2020 3:03 PM CSTTURN[facility] Comment:Antibodies to HCV not detected; does not exclude the possibility of exposure to HCV.Specimen (Source)Anatomical Location / LateralityCollection Method / VolumeCollection TimeReceived TimeBloodBLOOD SPECIMEN / Unknown Venipuncture / Nntnlfq5809/18/2019 9:14 AM CST09/18/2019 9:17 AM PARTS CONSULTANT Narrative Authorizing ProviderResult TypeResult StatusGeorge Ludwig Crawley MDSEND OUTS Final ResultPerforming OrganizationAddressCity/State/ZIP CodePhone Number [facility] [address] [place] [address], [place] from Last 3 Months or Most Recently Relevant to Health Maintenance Insurance Advance Directives TypeDate RecordedPatient RepresentativeExplanationPower of Jotoobdt36/30/2025 05/22/2025POLST09/18/2019 12:50 PM * Full Code (Latest Code Status on File) Date ActivatedDate InactivatedComments12/11/2013 8:46 AM12/11/2013 2:44 PM * Full Code Date ActivatedDate InactivatedComments01/09/2012 2:58 PM01/10/2012 3:36 PM Care Teams Team MemberRelationshipSpecialtyStart DateEnd Date Juan J Crawley MD [address] [place] [address] [place] [address] PCP - GeneralFamily Practice07/28/15
--- NOTE | 2025-07-09 17:54 | ED.CHESTPAIN ---
HPI - Chest Pain General Chief Complaint: Chest Pain Stated Complaint: chest heaviness, SOB Time Seen by Provider: 07/09/25 17:20 History of Present Illness HPI narrative: This 74-year-old male comes in with his because of a couple episodes of chest discomfort in the past 2 days. He does have a history of coronary artery disease and did have a couple stents placed about 9 years ago. He has done well since then and states that he takes an aspirin daily along with beta-zan. Yesterday he was shoveling some snow and notice some tightness across his chest. He rested and these symptoms resolved. Again he had some tightness today with similar activities using a snow throat or. He also states that he felt some mild tightness in his chest while sitting in the waiting room prior to coming in here. This was nonexertional. Currently does not have any discomfort. He states that the symptoms he had 9 years ago when he had stents placed did not involve some chest tightness like this. He had some shortness of breath at that time and some pain into his left arm. He denies currently having any nausea, vomiting, lightheadedness, shortness of breath, or diaphoresis. He arrives here with normal vital signs. Related Data Allergies Allergy/AdvReac Type Severity Reaction Status Date / Time No Known Drug Allergies Allergy Verified 12/24/24 00:53 Review of Systems Status of ROS Reports: 10 or more systems reviewed and unremarkable except as noted in History and below Narrative Constitutional: No fevers, no weight gain or loss. Eyes: No discharge. No vision changes. HENT: No congestion, no sore throat, no ear pain. Cardiovascular: No palpitations. Chest discomfort as described above. Respiratory: No shortness of breath, no wheezes, no cough. Gastrointestinal: No abdominal pain, no vomiting, no diarrhea. Genitourinary: No dysuria, no hematuria. Musculoskeletal: Normal range of motion. Skin: No rashes, no pruritis. Neurological: No dizziness, weakness, sensory change, speech change. Endo/Heme/Allergies: No bruising or bleeding. No polydipsia. Pysch: no suicidality, no anxiety, no insomnia. All other systems reviewed and are negative. [facility] Social History Smoking Status: Former smoker How often do you have a drink containing alcohol: 2-4 times a month How many standard drinks containing alcohol do you have on a typical day: 1 or 2 How often do you have six or more drinks on one occasion: Never AUDIT-C Alcohol total score: 2 Non-prescribed substance use: denies use Exam Narrative Exam Narrative: Constitutional: Well-developed, well-nourished, no acute distress. HEENT: Normocephalic, atraumatic. Neck: Normal range of motion. Nontender. Supple. Heart: Regular. No murmurs. Normal rate. Intact distal pulses. Lungs: Clear to auscultation. No chest discomfort. No wheezes, rhonchi, or rales. Abdomen: Normal bowel sounds. Nontender. No rebound tenderness. Genitalia: Deferred. Back: No midline tenderness. Normal range of motion. Extremities: Normal range of motion. No injury. Right lower leg amputation. Skin: Intact. No rash. Warm. No erythema or pallor. Neurologic: No altered sensation. No weakness. Alert and oriented. Psychiatric: No suicidality. No anxiety or depression. No insomnia. Nursing notes and vitals signs are reviewed. Const Vital Signs, click to edit/add: Vital Signs - 24 hr 07/09/25 17:28 07/09/25 17:44 07/09/25 17:45 Temperature 97.2 F L Pulse Rate 79 74 Pulse Rate [Pulse Oximeter] 95 Respiratory Rate 18 20 Blood Pressure 116/72 Blood Pressure [Right Upper Arm] 136/78 Pulse Oximetry 95 92 90 Oxygen Delivery Method Room Air 07/09/25 18:00 07/09/25 18:02 07/09/25 18:15 Temperature Pulse Rate 80 80 79 Pulse Rate [Pulse Oximeter] Respiratory Rate 18 Blood Pressure 115/76 Blood Pressure [Right Upper Arm] Pulse Oximetry 96 96 95 Oxygen Delivery Method 07/09/25 18:30 07/09/25 18:32 07/09/25 18:45 Temperature Pulse Rate 73 74 71 Pulse Rate [Pulse Oximeter] Respiratory Rate 24 30 H 27 H Blood Pressure 121/76 Blood Pressure [Right Upper Arm] Pulse Oximetry 90 90 90 Oxygen Delivery Method Course Vital Signs Vital signs: Initial Vital Signs Temperature 97.2 F L 07/09/25 17:28 Temperature Source Temporal Artery Scan 07/09/25 17:28 Pulse Rate 95 07/09/25 17:28 Respiratory Rate 18 07/09/25 17:28 Blood Pressure 136/78 07/09/25 17:28 Blood Pressure Mean 97 07/09/25 17:28 Blood Pressure Position Sitting 07/09/25 17:28 Pulse Oximetry 95 07/09/25 17:28 Oxygen Delivery Method Room Air 07/09/25 17:28 Vital Signs Temperature 97.2 F L 07/09/25 17:28 Pulse Rate 95 07/09/25 17:28 Respiratory Rate 18 07/09/25 17:28 Blood Pressure 136/78 07/09/25 17:28 Pulse Oximetry 95 07/09/25 17:28 Oxygen Delivery Method Room Air 07/09/25 17:28 Temperature 97.2 F L 07/09/25 17:28 Pulse Rate 71 07/09/25 18:45 Respiratory Rate 27 H 07/09/25 18:45 Blood Pressure 121/76 07/09/25 18:32 Pulse Oximetry 90 07/09/25 18:45 Oxygen Delivery Method Room Air 07/09/25 17:28 MDM - Chest Pain MDM Narrative Medical decision making narrative: This 74-year-old male comes in reporting some episodes of chest tightness with exertion over the past couple days. He does have a personal heart history in strong family history of coronary artery disease. He has been doing well since having stents placed about 9 years ago. He did have a stress test a year ago with reassuring results. Today his EKG is normal and lab results also returned with reassuring findings. His troponin is in normal range. He is not currently having any symptoms. The patient does follow with a cardiology Clinic in [place]. I advised him to follow-up there as a repeat stress test may be helpful. I also indicated signs and symptoms of would necessitate return for re-evaluation and further treatment. Lab Data Labs: Lab Results 07/09/25 07/09/25 Range/Units 17:54 18:14 WBC 8.31 (4.50-11.00) K/uL RBC 4.30 (4.30-5.90) m/uL Hgb 13.4 L (13.5-17.5) gm/dL Hct 41.1 (37.0-53.0) % MCV 96 (80-100) fL MCH 31 (26-34) pg MCHC 33 (32-36) gm/dL RDW Coeff of Dominique 12.6 (11.5-15.5) % Plt Count 207 (140-440) K/uL Neut % (Auto) 74.8 H (42.0-72.0) % Lymph % (Auto) 16.4 L (20-44) % [place] % (Auto) 6.3 (0.0-11.0) % Eos % (Auto) 1.3 (0.0-7.0) % Baso % (Auto) 0.4 (0.0-3.0) % Neut # (Auto) 6.20 (1.7-7.0) K/uL Lymph # (Auto) 1.40 (0.90-2.90) K/uL [place] # (Auto) 0.50 (0.00-0.90) K/UL Eos # (Auto) 0.11 (0.00-0.50) K/uL Baso # (Auto) 0.03 (0.00-0.30) K/uL Abs Immat Gran (auto) 0.07 (0.00-0.30) K/uL Imm/Tot Granulo (auto) 0.8 % Sodium 134 L (135-149) mmol/L Potassium 4.0 (3.6-5.1) mmol/L Chloride 101 (96-114) mmol/L Carbon Dioxide 24 (20-32) mmol/L Anion Gap 9 (7-15) mEq/L BUN 13 (7-30) mg/dL Creatinine 0.6 (0.5-1.5) mg/dL Estimated Creat Clear 66.93 Estimated GFR 100 ml/min Glucose 165 H (60-115) mg/dL Calcium 9.3 (8.4-10.6) mg/dL POC Troponin I High Sensi 10.2 (2.9-28.0) pg/mL ECG Data Attestation: I personally reviewed and interpreted this ECG as follows: Interpretation: Normal sinus rhythm. Rate is 73 beats per minute. There are no ST or T-wave abnormalities. Discharge Plan Discharge Clinical Impression: Atypical chest pain Patient Disposition: Home, Self-Care Condition: Stable Additional Instructions: Continue current plans. Activity as tolerated. Follow-up with cardiology clinic for further evaluation. Return if symptoms are persistent or worsening. Follow Up/Referrals: Provider,Not a Local [Primary Care Provider, Family Practice] Stand Alone Forms: [place] Info Instructions
[2025-07-09 18:19] LABS: Hematocrit* 41.1 % (37.0-53.0); Hemoglobin* 13.4 gm/dL (13.5-17.5); Immature Granulocytes Abs Auto 0.07 K/uL (0.00-0.30); Immature Granulocytes Pct Auto 0.8 %; Mean Corpuscular HGB Conc 33 gm/dL (32-36); Mean Corpuscular Hemoglobin 31 pg (26-34); Mean Corpuscular Volume 96 fL (80-100); RDW Coefficient of Variation % 12.6 % (11.5-15.5); Red Blood Count* 4.30 m/uL (4.30-5.90); White Blood Count* 8.31 K/uL (4.50-11.00)
[2025-07-09 18:26] LABS: Lymphocytes Absolute Auto 1.40 K/uL (0.90-2.90); Slide Review Reflex No
[2025-07-09 18:39] LABS: Chloride* 101 mmol/L (96-114); Potassium* 4.0 mmol/L (3.6-5.1); Sodium* 134 mmol/L (135-149)
[2025-07-09 18:41] LABS: Blood Urea Nitrogen* 13 mg/dL (7-30); Creatinine* 0.6 mg/dL (0.5-1.5); Est. Creatinine Clearance* 66.93; Estimated Glomerular Filt Rate 100 ml/min
[2025-07-09 18:42] LABS: Anion Gap 9 mEq/L (7-15); Calcium* 9.3 mg/dL (8.4-10.6); Carbon Dioxide* 24 mmol/L (20-32); Glucose* 165 mg/dL (60-115)
== END 2025-07-09 19:19 | disposition home or self-care (01) ==
PROVIDERS: Emergency Provider Emergency Medicine Emergency Medical Services
DX: R07.89 Other chest pain (principal); Z95.5 Presence of coronary angioplasty implant and graft; Z79.82 Long term (current) use of aspirin
CPT/HCPCS: 36415; 80048; 84484; 85025; 93005; 99284